=== PATIENT | male | born 1975 | race African-American/Black ===

== ENCOUNTER 2016-06-22 11:32 | Inpatient (IN) | payer OTHER ==
[2016-06-22 13:11] VITALS: BMI 29.0
--- NOTE | 2016-06-22 13:48 | HP ---
COWS - Scale Resting Pulse: 0= [place] 80 or Below Sweatin= Chills/Flushing Restless Observation: 1= Difficult to Sit Still Pupil Size: 0= Normal to Room Light Bone or Joint Aches: 2= Severe Diffuse Aches Runny Nose/ Eye Tearin= Runny Nose/Eyes GI Upset > 30mins: 0= None Tremor Observation: 2= Slight Tremor Visible Yawning Observation: 2= >3x During Session Anxiety or Irritability: 2=Irritable/Anxious Goose Flesh Skin: 3=Piloerection COWS Score: 15 CIWA Score - CIWA Score Nausea/Vomitin-No Nausea/No Vomiting Muscle Tremors: 4-Moderate,w/Arms Extend Anxiety: 4-Mod. Anxious/Guarded Agitation: 4-Moderately Restless Paroxysmal Sweats: 3 Orientation: 0-Oriented Tacttile Disturbances: 0-None Auditory Disturbances: 0-None Visual Disturbances: 0-None Headache: 1-Very Mild CIWA-Ar Total Score: 16 Admission ROS BHS - HPI Chief Complaint: I need help. Allergies/Adverse Reactions: Allergies Allergy/AdvReac Type Severity Reaction Status Date / Time Fish Containing Products Allergy Severe Swelling Verified 06/22/16 13:28 NKDA Allergy Uncoded 06/22/16 13:28 History of Present Illness: pt is a 40yr old male Exam Limitations: No Limitations - Ebola screening Have you traveled outside of the country in the last 21 days: No Have you had contact with anyone from an Ebola affected area: No Have you been sick,other than usual withdrawal symptoms: No Do you have a fever: No - Review of Systems Constitutional: Chills, Diaphoresis, Loss of Appetite, Changes in sleep, Unintentional Wgt. Loss EENT: reports: Nose Congestion Respiratory: reports: No Symptoms reported Cardiac: reports: No Symptoms Reported GI: reports: Poor Appetite, Poor Fluid Intake : reports: No Symptoms Reported Musculoskeletal: reports: No Symptoms Reported Integumentary: reports: Flushing, Sweating, Other (lesion to right hand) Neuro: reports: Tingling, Tremors Endocrine: reports: Excessive Sweating, Flushing, Intolerance to Cold, Intolerance to Heat Hematology: reports: No Symptoms Reported Psychiatric: reports: Judgement Intact, Mood/Affect Appropiate, Orientated x3, Agitated, Anxious Other Systems: Reviewed and Negative Patient History - Patient Medical History Hx Anemia: No Hx Asthma: No Hx Chronic Obstructive Pulmonary Disease (COPD): No Hx Cardiac Disorders: No Hx Hypertension: No Hx Hypercholesterolemia: No HX Cerebrovascular Accident: No Hx Seizures: No Hx Diabetes: No Hx Gastrointestinal Disorders: No Hx Liver Disease: No Hx Genitourinary Disorders: No Hx Sexually Transmitted Disorders: No Hx Renal Disease (ESRD): No Hx Thyroid Disease: No Hx Human Immunodeficiency Virus (HIV): No (NEGATIVE HX) Hx Hepatitis C: Yes (RECIEVED [place], V.LOAD ZERO PER PT) Hx Depression: No Hx Suicide Attempt: No Hx Bipolar Disorder: No Hx Schizophrenia: No - Patient Surgical History Past Surgical History: No Hx Neurologic Surgery: No Hx Cataract Extraction: No Hx Cardiac Surgery: No Hx Lung Surgery: No Hx Breast Surgery: No Hx Breast Biopsy: No Hx Abdominal Surgery: No Hx Appendectomy: No Hx Cholecystectomy: No Hx Genitourinary Surgery: No Hx Section: No Hx Orthopedic Surgery: No Anesthesia Reaction: No - PPD History Previous Implant?: Yes Documented Results: Negative w/o proof Implanted On Prior [facility] Admission?: Yes PPD to be Administered?: No - Reproductive History Patient is a Female of Child Bearing Age (11 -55 yrs old): No - Smoking Cessation Smoking history: Current every day smoker Have you smoked in the past 12 months: Yes Aproximately how many cigarettes per day: 7 Hx Chewing Tobacco Use: No Initiated information on smoking cessation: Yes 'Breaking Loose' booklet given: 06/22/16 - Substance & Tx. History Hx Alcohol Use: Yes Hx Substance Use: Yes Substance Use Type: Alcohol, Heroin Hx Substance Use Treatment: Yes - Substances Abused Heroin Route: Injection Frequency: Daily Amount used: 6-7 bags Age of first use: 28 Date of Last Use: 06/22/16 Alcohol-vodka Route: Oral Frequency: Daily Amount used: 1 pt. Age of first use: 17 Date of Last Use: 06/20/16 Family Disease History - Family Disease History Family Disease History: Diabetes: Grandparent, Other: Mother (HTN) Admission Physical Exam BHS - Vital Signs Vital Signs: Vital Signs - 24 hr 06/22/16 13:10 Temperature 96 F L Pulse Rate 80 Respiratory 20 Rate Blood Pressure 124/70 - Physical General Appearance: Yes: Appropriately Dressed, Moderate Distress, Tremorous, Irritable, Sweating, Anxious HEENTM: Yes: Normal Voice, Nasal Congestion, Rhinorrhea Respiratory: Yes: Lungs Clear, Normal Breath Sounds, No Respiratory Distress Neck: Yes: No masses,lesions,Nodules Breast: Yes: Within Normal Limits Cardiology: Yes: Regular Rhythm, Regular Rate, S1, S2 Abdominal: Yes: Normal Bowel Sounds, Non Tender, Soft Genitourinary: Yes: Within Normal Limits Back: Yes: Normal Inspection Musculoskeletal: Yes: full range of Motion Extremities: Yes: Normal Capillary Refill, Normal Inspection, Non-Tender, Tremors Neurological: Yes: Fully Oriented, Alert, Normal Response Integumentary: Yes: Normal Color, Other (abrasion to right hand) Lymphatic: Yes: Within Normal Limits - Diagnostic (1) Alcohol dependence with uncomplicated withdrawal Current Visit: Yes Status: Chronic (2) Nicotine dependence Current Visit: Yes Status: Chronic Qualifiers: Nicotine product type: cigarettes Substance use status: uncomplicated Qualified Code(s): F17.210 - Nicotine dependence, cigarettes, uncomplicated (3) Opioid dependence with withdrawal Current Visit: Yes Status: Chronic (4) Cannabis dependence Current Visit: Yes Status: Chronic (5) Cocaine dependence Current Visit: Yes Status: Chronic Qualifiers: Substance use status: uncomplicated Qualified Code(s): F14.20 - Cocaine dependence, uncomplicated (6) Abrasion hand Current Visit: Yes Status: Acute Qualifiers: Encounter type: initial encounter Laterality: right Qualified Code(s): S60.511A - Abrasion of right hand, initial encounter Cleared for Admission [facility] - Detox or Rehab [facility] Level of Care: Medically Managed Detox Regimen/Protocol: Methadone/Librium [facility] Breath Alcohol Content Breath Alcohol Content: 0 Urine Drug Screen - Results Drug Screen Negative: No Urine Drug Screen Results: THC-Marijuana, MARIANNE-Cocaine, OPI-Opiates, BZO- Benzodiazepines, MTD-Methadone, OXY-Oxycodone
[2016-06-22] MEDS ORDERED: MENTHOL/PHENOL 1 EACH UD MM PRN (14:01)
[2016-06-22] MEDS ORDERED: METHADONE HCL 10 MG TABLET (FOR DETOX USE ONLY) PO ONE ×2 (14:01→23:00)
[2016-06-22] MEDS ORDERED: MAGNESIUM CITRATE 300 ML BOTTLE PO PRN (14:01)
[2016-06-22] MEDS ORDERED: chlordiazePOXIDE HCL 25 MG CAPSULE PO PRN (14:01)
[2016-06-22] MEDS ORDERED: hydrOXYzine PAMOATE 50 MG CAPSULE (FP) PO PRN (14:01)
[2016-06-22] MEDS ORDERED: NICOTINE POLACRILEX 4 MG GUM BUC PRN (14:01)
[2016-06-22] MEDS ORDERED: ACETAMINOPHEN 325 MG TABLET (FP) PO PRN (14:01)
[2016-06-22] MEDS ORDERED: MAG HYDROX/AL HYDROX/SIMETH 30 ML UNIT-DOSE CUP PO PRN (14:01)
[2016-06-22] MEDS ORDERED: guaiFENesin/D-METHORPHAN HB 10 ML UNIT-DOSE CUPS PO PRN (14:01)
[2016-06-22] MEDS ORDERED: IBUPROFEN 400 MG TABLET (FP) PO PRN (14:01)
[2016-06-22] MEDS ORDERED: MAGNESIUM HYDROX 2400MG/30ML ORAL SUSPENSION 30 ML CUP PO PRN (14:01)
[2016-06-22] MEDS ORDERED: LOPERAMIDE HCL 2 MG CAPSULE PO PRN (14:01)
[2016-06-22] MEDS ORDERED: P-EPHED 60MG/TRIPROLIDI 2.5MG TABLET PO PRN (14:01)
[2016-06-22] MEDS ORDERED: chlordiazePOXIDE HCL 25 MG CAPSULE PO ONE (15:04)
[2016-06-22] MEDS: chlordiazePOXIDE HCL 25 MG CAPSULE PO SCH ×2 (17:31→22:59)
[2016-06-22 18:57] LABS: URINE APPEARANCE CLEAR; URINE BILIRUBIN NEGATIVE (NEGATIVE); URINE BLOOD NEGATIVE (NEGATIVE); URINE COLOR DKYELLOW; URINE GLUCOSE (UA) NEGATIVE (NEGATIVE); URINE KETONE TRACE (NEGATIVE); URINE LEUK ESTERASE NEGATIVE (NEGATIVE); URINE NITRITE NEGATIVE (NEGATIVE); URINE UROBILINOGEN NEGATIVE E.U./dl (0.2-1.0)
[2016-06-22 19:20] LABS: URINE PROTEIN 1+ (NEGATIVE)
[2016-06-22 19:23] LABS: URINE HYALINE CAST 2 /lpf; URINE MUCUS MANY; URINE RBC 2 /hpf (0-3); URINE WBC 3 /hpf (3-5)
[2016-06-22] MEDS: THIAMINE HCL 100 MG TABLET (FP) PO SCH (22:58)
[2016-06-22] MEDS: diphenhydrAMINE HCL 50 MG CAPSULE PO PRN (22:59)
[2016-06-23] MEDS: chlordiazePOXIDE HCL 25 MG CAPSULE PO SCH ×4 (06:40→23:00)
--- NOTE | 2016-06-23 09:54 | PN ---
[facility] CIWA - CIWA Score Nausea/Vomitin Muscle Tremors: 4-Moderate,w/Arms Extend Anxiety: 4-Mod. Anxious/Guarded Agitation: 4-Moderately Restless Paroxysmal Sweats: 3 Orientation: 0-Oriented Tacttile Disturbances: 0-None Auditory Disturbances: 0-None Visual Disturbances: 0-None Headache: 0-None Present CIWA-Ar Total Score: 18 BHS COWS - Scale Resting Pulse: 0= [place] 80 or Below Sweatin=Flushed/Facial Moisture Restless Observation: 1= Difficult to Sit Still Pupil Size: 0= Normal to Room Light Bone or Joint Aches: 2= Severe Diffuse Aches Runny Nose/ Eye Tearin= Runny Nose/Eyes GI Upset > 30mins: 2= Nausea/Diarrhea Tremor Observation of Outstretched Hands: 2= Slight Tremor Visible Yawning Observation: 1= 1-2x During Session Anxiety or Irritability: 2=Irritable/Anxious Goose Flesh Skin: 3=Piloerection COWS Score: 17 S Progress Note (SOAP) Subjective: Anxiety,tremors,sweating,interrupted sleep,restless,chills,piloerection. Objective: 06/23/16 09:53 Vital Signs - 8 hr 06/23/16 06/23/16 06/23/16 04:00 06:44 09:29 Temperature 97.2 F L 96.8 F L Pulse Rate 56 L 46 L Respiratory 18 18 18 Rate Blood Pressure 95/66 97/64 Laboratory Tests 06/22/16 13:00 Urine Color Dkyellow Urine Appearance Clear Urine pH 5.0 Ur Specific [place] 1.035 Urine Protein 1+ H Urine Glucose (UA) Negative Urine Ketones Trace H Urine Blood Negative Urine Nitrite Negative Urine Bilirubin Negative Urine Urobilinogen Negative Ur Leukocyte Esterase Negative Urine RBC 2 Urine WBC 3 Hyaline Casts 2 Urine Mucus Many labs noted Assessment: 06/23/16 09:53 Withdrawal sx. Plan: Continue detox
[2016-06-23] MEDS ORDERED: METHADONE HCL 10 MG TABLET (FOR DETOX USE ONLY) PO SCH (10:00)
[2016-06-23 10:08] LABS: MCH 26.6 pg (25.7-33.7); MCHC 32.4 g/dl (32.0-35.9); MEAN CELL VOLUME 82.1 fl (80-96); MEAN PLT VOLUME 9.4 fl (7.5-11.1); PLATELET COUNT 199 K/MM3 (134-434); RDW 13.8 % (11.9-15.9); WHITE BLOOD COUNT 6.2 K/mm3 (4.0-10.0)
[2016-06-23] MEDS: PRENATAL VITAMINS W/ FOLIC ACID TABLET (FP) PO SCH (10:46)
[2016-06-23 10:52] LABS: HIV 1 & 2 AB NEGATIVE; HIV 1 AGp24 NEGATIVE
[2016-06-23 10:55] LABS: ALBUMIN 4.2 g/dl (3.4-5.0); ALK PHOS 86 U/L (45-117); ANION GAP 8 (8-16); BILIRUBIN,TOTAL 0.6 mg/dL (0.2-1.0); CO2 28 mmol/L (21-32); GLUCOSE,RANDOM 70 mg/dL (74-106); SGOT/AST 43 U/L (15-37); SGPT/ALT 101 U/L (12-78); TOT PROT 7.9 g/dl (6.4-8.2)
[2016-06-23] MEDS: NICOTINE 21 MG/24 HOURS TOPICAL PATCH TD SCH (11:23)
--- NOTE | 2016-06-23 12:16 | CONSULT ---
[facility] Psychiatric Consult - Data Date of interview: 06/23/16 Admission source: [facility] Identifying data: Readmission to [facility] for this 40 y/o male seeking detox treatment for alcohol,heroin,cocaine,benzodiazepine and marijuana dependence.Patient is single,a father of one,domiciled,unemployed and deprived of any source of income. Substance Abuse History: - Smoking Cessation. Smoking history: Current every day smoker. Have you smoked in the past 12 months: Yes. Aproximately how many cigarettes per day: 7. Hx Chewing Tobacco Use: No. Initiated information on smoking cessation: Yes. 'Breaking Loose' booklet given: 06/22/16. - Substance & Tx. History. Hx Alcohol Use: Yes. Hx Substance Use: Yes. Substance Use Type : Alcohol, Heroin. Hx Substance Use Treatment: Yes. - Substances Abused. Heroin. Route: Injection. Frequency: Daily. Amount used: 6-7 bags. Age of first use: 28. Date of Last Use: 06/22/16. Alcohol-vodka. Route: Oral. Frequency: Daily. Amount used: 1 pt. Age of first use: 17. Date of Last Use: 06/20/16. Confriemed by patient. Medical History: Hepatitis C. Psychiatric History: Patient denies. Physical/Sexual Abuse/Trauma History: Patient denies. Additional Comment: Urine Drug Screen Results: THC-Marijuana, MARIANNE-Cocaine, OPI- Opiates, BZO-Benzodiazepines, MTD-Methadone, OXY-Oxycodone.Noted. Mental Status Exam - Mental Status Exam Alert and Oriented to: Time, Place, Person Cognitive Function: Grossly Intact Patient Appearance: Unkempt, Disheveled Mood: Nervous, Withdrawn Affect: Mood Congruent Patient Behavior: Passive, Fatigued, Uncooperative Speech Pattern: Clear Voice Loudness: Normal Thought Process: Goal Oriented Thought Disorder: Not Present Hallucinations: Denies Suicidal Ideation: Denies Homicidal Ideation: Denies Insight/Judgement: Poor Sleep: Well Appetite: Good Muscle strength/Tone: Normal Gait/Station: Normal Psychiatric Findings - Problem List ([place] 1, 2,3) (1) Alcohol dependence with uncomplicated withdrawal Current Visit: Yes Status: Acute (2) Cannabis dependence Current Visit: Yes Status: Acute (3) Opioid dependence with withdrawal Current Visit: Yes Status: Acute (4) Cocaine dependence Current Visit: Yes Status: Acute Qualifiers: Substance use status: uncomplicated Qualified Code(s): F14.20 - Cocaine dependence, uncomplicated (5) Nicotine dependence Current Visit: Yes Status: Acute Qualifiers: Nicotine product type: cigarettes Substance use status: uncomplicated Qualified Code(s): F17.210 - Nicotine dependence, cigarettes, uncomplicated - Initial Treatment Plan Initial Treatment Plan: Psychoeducation.Detoxification.Observation.
--- NOTE | 2016-06-23 12:35 | EKG ---
Test Reason : Blood Pressure : / mmHG Vent. Rate : 065 BPM Atrial Rate : 065 BPM P-R Int : 188 ms QRS Dur : 090 ms QT Int : 414 ms P-R-T Axes : 058 083 043 degrees QTc Int : 430 ms NORMAL SINUS RHYTHM WITH SINUS ARRHYTHMIA NORMAL ECG NO PREVIOUS ECGS AVAILABLE Confirmed by JOON CAPUTO, ILEANA ([id number]) on 06/23/2016 12:34:34 PM Referred By: Confirmed By:ILEANA DUPREE MD
[2016-06-23] MEDS: THIAMINE HCL 100 MG TABLET (FP) PO SCH (23:00)
[2016-06-23] MEDS: diphenhydrAMINE HCL 50 MG CAPSULE PO PRN (23:00)
[2016-06-24] MEDS: chlordiazePOXIDE HCL 25 MG CAPSULE PO SCH ×2 (06:11→11:02)
[2016-06-24] MEDS ORDERED: METHADONE HCL 5 MG TABLET (FOR DETOX USE ONLY) PO SCH (10:00)
[2016-06-24] MEDS: PRENATAL VITAMINS W/ FOLIC ACID TABLET (FP) PO SCH (10:42)
[2016-06-24] MEDS: NICOTINE 21 MG/24 HOURS TOPICAL PATCH TD SCH (10:42)
[2016-06-24 14:01] VITALS: BP 99/65; PULSE 58; TEMP 97.1
--- NOTE | 2016-06-24 14:42 | PN ---
[facility] CIWA - CIWA Score Nausea/Vomitin-Mild Nausea/No Vomiting Muscle Tremors: 4-Moderate,w/Arms Extend Anxiety: 4-Mod. Anxious/Guarded Agitation: 2 Paroxysmal Sweats: 3 Orientation: 1-Uncertain about Date Tacttile Disturbances: 2-Mild Itch/Numbness/Burn Auditory Disturbances: 0-None Visual Disturbances: 1-Very Mild Sensitivity Headache: 0-None Present CIWA-Ar Total Score: 18 BHS COWS - Scale Resting Pulse: 1= [place] 81-100 Sweatin= Chills/Flushing Restless Observation: 1= Difficult to Sit Still Pupil Size: 0= Normal to Room Light Bone or Joint Aches: 1= Mild Discomfort Runny Nose/ Eye Tearin= Nasal Congestion GI Upset > 30mins: 1= Stomach Cramp Tremor Observation of Outstretched Hands: 2= Slight Tremor Visible Yawning Observation: 1= 1-2x During Session Anxiety or Irritability: 2=Irritable/Anxious Goose Flesh Skin: 3=Piloerection COWS Score: 14 [facility] Progress Note (SOAP) Subjective: Sweating, Cold Sensations, Anxiety, Tremors. Objective: PT. A & O X 2 (DISORIENTED ABOUT DATE / DAY). 06/24/16 14:40 Vital Signs Temperature 97.1 F L 06/24/16 14:00 Pulse Rate 58 L 06/24/16 14:00 Respiratory Rate 18 06/24/16 14:00 Blood Pressure 99/65 06/24/16 14:00 O2 Sat by Pulse Oximetry (%) Laboratory Last Values WBC 6.2 K/mm3 (4.0-10.0) D 06/23/16 06:00 RBC 5.13 M/mm3 (4.00-5.60) 06/23/16 06:00 Hgb 13.7 GM/dL (11.7-16.9) 06/23/16 06:00 Hct 42.1 % (35.4-49) 06/23/16 06:00 MCV 82.1 fl (80-96) 06/23/16 06:00 MCHC 32.4 g/dl (32.0-35.9) 06/23/16 06:00 RDW 13.8 % (11.9-15.9) 06/23/16 06:00 Plt Count 199 K/MM3 (134-434) 06/23/16 06:00 MPV 9.4 fl (7.5-11.1) 06/23/16 06:00 Sodium 137 mmol/L (136-145) 06/23/16 06:00 Potassium 4.3 mmol/L (3.5-5.1) 06/23/16 06:00 Chloride 101 mmol/L (98-107) 06/23/16 06:00 Carbon Dioxide 28 mmol/L (21-32) 06/23/16 06:00 Anion Gap 8 (8-16) 06/23/16 06:00 BUN 19 mg/dL (7-18) H D 06/23/16 06:00 Creatinine 1.0 mg/dL (0.7-1.3) 06/23/16 06:00 Creat Clearance w eGFR > 60 (>60) 06/23/16 06:00 Random Glucose 70 mg/dL (74-106) L D 06/23/16 06:00 Calcium 9.0 mg/dL (8.5-10.1) 06/23/16 06:00 Total Bilirubin 0.6 mg/dL (0.2-1.0) D 06/23/16 06:00 AST 43 U/L (15-37) H D 06/23/16 06:00 ALT 101 U/L (12-78) H D 06/23/16 06:00 Alkaline Phosphatase 86 U/L (45-117) 06/23/16 06:00 Total Protein 7.9 g/dl (6.4-8.2) 06/23/16 06:00 Albumin 4.2 g/dl (3.4-5.0) D 06/23/16 06:00 Urine Color Dkyellow 06/22/16 13:00 Urine Appearance Clear 06/22/16 13:00 Urine pH 5.0 (5.0-8.0) 06/22/16 13:00 Ur Specific [place] 1.035 (1.001-1.035) 06/22/16 13:00 Urine Protein 1+ (NEGATIVE) H 06/22/16 13:00 Urine Glucose (UA) Negative (NEGATIVE) 06/22/16 13:00 Urine Ketones Trace (NEGATIVE) H 06/22/16 13:00 Urine Blood Negative (NEGATIVE) 06/22/16 13:00 Urine Nitrite Negative (NEGATIVE) 06/22/16 13:00 Urine Bilirubin Negative (NEGATIVE) 06/22/16 13:00 Urine Urobilinogen Negative E.U./dl (0.2-1.0) 06/22/16 13:00 Ur Leukocyte Esterase Negative (NEGATIVE) 06/22/16 13:00 Urine RBC 2 /hpf (0-3) 06/22/16 13:00 Urine WBC 3 /hpf (3-5) 06/22/16 13:00 Hyaline Casts 2 /lpf 06/22/16 13:00 Urine Mucus Many 06/22/16 13:00 RPR Titer Nonreactive (NONREACTIVE) 06/23/16 06:00 HIV 1&2 Antibody Screen Negative 06/22/16 08:00 HIV P24 Antigen Negative 06/22/16 08:00 LABS NOTED. Assessment: 06/24/16 14:41 WITHDRAWAL SYMPTOMS. Plan: CONTINUE DETOX. ADVISED PATIENT TO FOLLOW-UP WITH CERAMICS TECHNICIAN / REHAB MEDICAL PROVIDER AFTER DISCHARGE FROM DETOX FOR GENERAL MEDICAL ASSESSMENT AND FOR ANY ABNORMAL ADMISSION LAB VALUES.
[2016-06-24] MEDS ORDERED: chlordiazePOXIDE 5 MG CAPSULE PO SCH (17:00)
--- NOTE | 2016-06-24 18:57 | DS ---
[facility] Detox Discharge Summary Admission Date: 06/22/16 Discharge Date: 06/24/16 - History Present History: Alcohol Dependence, Cannabis Dependence, Cocaine Dependence, Opioid Dependence Additional Comments: patient insists to leave the unit, refuses to wait face to face with provider consider follow up as per counselor arranged. Pertinent Past History: nicotine dependence - Physical Exam Results Vital Signs: Vital Signs Temperature 97.1 F L 06/24/16 14:00 Pulse Rate 58 L 06/24/16 14:00 Respiratory Rate 18 06/24/16 14:00 Blood Pressure 99/65 06/24/16 14:00 O2 Sat by Pulse Oximetry (%) Pertinent Admission Physical Exam Findings: withdrawal sx Laboratory Last Values WBC 6.2 K/mm3 (4.0-10.0) D 06/23/16 06:00 RBC 5.13 M/mm3 (4.00-5.60) 06/23/16 06:00 Hgb 13.7 GM/dL (11.7-16.9) 06/23/16 06:00 Hct 42.1 % (35.4-49) 06/23/16 06:00 MCV 82.1 fl (80-96) 06/23/16 06:00 MCHC 32.4 g/dl (32.0-35.9) 06/23/16 06:00 RDW 13.8 % (11.9-15.9) 06/23/16 06:00 Plt Count 199 K/MM3 (134-434) 06/23/16 06:00 MPV 9.4 fl (7.5-11.1) 06/23/16 06:00 Sodium 137 mmol/L (136-145) 06/23/16 06:00 Potassium 4.3 mmol/L (3.5-5.1) 06/23/16 06:00 Chloride 101 mmol/L (98-107) 06/23/16 06:00 Carbon Dioxide 28 mmol/L (21-32) 06/23/16 06:00 Anion Gap 8 (8-16) 06/23/16 06:00 BUN 19 mg/dL (7-18) H D 06/23/16 06:00 Creatinine 1.0 mg/dL (0.7-1.3) 06/23/16 06:00 Creat Clearance w eGFR > 60 (>60) 06/23/16 06:00 Random Glucose 70 mg/dL (74-106) L D 06/23/16 06:00 Calcium 9.0 mg/dL (8.5-10.1) 06/23/16 06:00 Total Bilirubin 0.6 mg/dL (0.2-1.0) D 06/23/16 06:00 AST 43 U/L (15-37) H D 06/23/16 06:00 ALT 101 U/L (12-78) H D 06/23/16 06:00 Alkaline Phosphatase 86 U/L (45-117) 06/23/16 06:00 Total Protein 7.9 g/dl (6.4-8.2) 06/23/16 06:00 Albumin 4.2 g/dl (3.4-5.0) D 06/23/16 06:00 Urine Color Dkyellow 06/22/16 13:00 Urine Appearance Clear 06/22/16 13:00 Urine pH 5.0 (5.0-8.0) 06/22/16 13:00 Ur Specific [place] 1.035 (1.001-1.035) 06/22/16 13:00 Urine Protein 1+ (NEGATIVE) H 06/22/16 13:00 Urine Glucose (UA) Negative (NEGATIVE) 06/22/16 13:00 Urine Ketones Trace (NEGATIVE) H 06/22/16 13:00 Urine Blood Negative (NEGATIVE) 06/22/16 13:00 Urine Nitrite Negative (NEGATIVE) 06/22/16 13:00 Urine Bilirubin Negative (NEGATIVE) 06/22/16 13:00 Urine Urobilinogen Negative E.U./dl (0.2-1.0) 06/22/16 13:00 Ur Leukocyte Esterase Negative (NEGATIVE) 06/22/16 13:00 Urine RBC 2 /hpf (0-3) 06/22/16 13:00 Urine WBC 3 /hpf (3-5) 06/22/16 13:00 Hyaline Casts 2 /lpf 06/22/16 13:00 Urine Mucus Many 06/22/16 13:00 RPR Titer Nonreactive (NONREACTIVE) 06/23/16 06:00 HIV 1&2 Antibody Screen Negative 06/22/16 08:00 HIV P24 Antigen Negative 06/22/16 08:00 lab noted - Treatment Hospital Course: Detox Protocol Followed, Responded well - Medication Discharge Medications: Ambulatory Orders NK [No Known Home Medication] 09/15/14 - Diagnosis (1) Alcohol dependence with uncomplicated withdrawal Status: Acute (2) Cannabis dependence Status: Chronic (3) Cocaine dependence Status: Chronic Qualifiers: Substance use status: uncomplicated Qualified Code(s): F14.20 - Cocaine dependence, uncomplicated (4) Nicotine dependence Status: Acute Qualifiers: Nicotine product type: cigarettes Substance use status: in withdrawal Qualified Code(s): F17.213 - Nicotine dependence, cigarettes, with withdrawal (5) Opioid dependence with withdrawal Status: Acute - AMA Did Patient Leave Against Medical Advice: Yes
[2016-06-25] MEDS ORDERED: chlordiazePOXIDE HCL 10 MG CAPSULE PO SCH (17:00)
[2016-06-26] MEDS ORDERED: METHADONE HCL 10 MG TABLET (FOR DETOX USE ONLY) PO SCH (10:00)
[2016-06-27] MEDS ORDERED: METHADONE HCL 5 MG TABLET (FOR DETOX USE ONLY) PO SCH (06:00)
== END 2016-06-24 17:55 | disposition left against medical advice (07) | DRG 770 ==
LOC: YASAS 11:32 → Y3N 14:30
PROVIDERS: ADMIT Internal Medicine; ATTEND Internal Medicine
PROC: HZ2ZZZZ Detoxification Services for Substance Abuse Treatment (ICD-10-PCS; principal; 2016-06-24)
DX: F11.23 Opioid dependence with withdrawal (principal); F14.20 Cocaine dependence, uncomplicated; F12.20 Cannabis dependence, uncomplicated; F17.213 Nicotine dependence, cigarettes, with withdrawal; S60.511A Abrasion of right hand, initial encounter; X58.XXXA Exposure to other specified factors, initial encounter; Y93.89 Activity, other specified
CPT/HCPCS: 36415; 80053; 81003; 81015; 85027; 86593; 87389; 93005; 93010

== ENCOUNTER 2019-10-03 13:57 | Inpatient (IN) | payer OTHER ==
--- NOTE | 2019-10-03 14:06 | BHS.RME ---
Substance Use & Tx History - Substance Use History Alcohol Substance amount: 2 pints bacardi and beers Frequency of use: Daily Substance route: Oral Date of Last Use: 10/03/19 Heroin Substance amount: 6 bags Frequency of use: Daily Substance route: Inhalation (ex: sniffing or snorting) Date of Last Use: 10/02/19 Physical/Psych/Mental Status - Behavior General Behavior: Increased activity (restlessness, agitation) Eye Contact: Normal - Cooperativeness Cooperativeness: Cooperative - Thinking Thought Processes: Tight, Logical, Goal Directed - Physical Health Problems Is patient presently having any pain?: No Does patient presently have any injuries (include location): No Does patient currently have a fever: No Is patient : No CIWA Nausea/Vomitin Muscle Tremors: 3 Anxiety: 4-Mod. Anxious/Guarded Agitation: 2 Paroxysmal Sweats: No Perspiration Orientation: 0-Oriented Tacttile Disturbances: 0-None Auditory Disturbances: 0-None Visual Disturbances: 0-None Headache: 1-Very Mild CIWA-Ar Total Score: 13
[2019-10-03 15:00] VITALS: BMI 27.3
--- NOTE | 2019-10-03 15:15 | HP ---
CIWA Score Nausea/Vomitin Muscle Tremors: 3 Anxiety: 4-Mod. Anxious/Guarded Agitation: 2 Paroxysmal Sweats: No Perspiration Orientation: 0-Oriented Tacttile Disturbances: 0-None Auditory Disturbances: 0-None Visual Disturbances: 0-None Headache: 1-Very Mild CIWA-Ar Total Score: 13 - Admission Criteria OASAS Guidelines: Admission for Medically Managed Detox: Requires at least one of the followin. CIWA greater than 12 2. Seizures within the past 24 hours 3. Delirium tremens within the past 24 hours 4. Hallucinations within the past 24 hours 5. Acute intervention needed for co occurring medical disorder 6. Acute intervention needed for co occurring psychiatric disorder 7. Severe withdrawal that cannot be handled at a lower level of care (continued vomiting, continued diarrhea, abnormal vital signs) requiring intravenous medication and/or fluids 8. Admitting History and Physical - Admission Chief Complaint: I do not want to do drugs anymore History of Present Illness: Patient is a 45 y/o M with a significant past medical history of Hepatitis C (treated) who presents to [facility] for Alcohol detox. Patient is currently on ethadone therapy for opiate abuse. PMH Hepatitis C Treated Social Hx: Denies Tobacco or Marijuana. Drinks Baccardi 2 pints daily. Injects Heroine (last use last night 11 pm) Surg Hx- Liver biopsy FH- Denies Substance Use & Tx History - Substance Use History Alcohol Substance amount: 2 pints bacardi and beers Frequency of use: Daily Substance route: Oral Date of Last Use: 10/03/19 Heroin Substance amount: 6 bags Frequency of use: Daily Substance route: Inhalation (ex: sniffing or snorting) Date of Last Use: 10/02/19 History Source: Patient Limitations to Obtaining History: No Limitations - Past Medical History Hepatobiliary: Yes: Hepatitis C (Treated.) Psych: Yes: Anxiety - Past Surgical History Additional Past Surgical History: Liver Biopsy (previous h/o Hep C) - Smoking History Smoking history: Never smoked Have you smoked in the past 12 months: No Aproximately how many cigarettes per day: 0 - Alcohol/Substance Use Hx Alcohol Use: Yes Number of Drinks Daily: 40 (2 pints of Baccardi ) Admission ROS BHS - HPI Allergies/Adverse Reactions: Allergies Allergy/AdvReac Type Severity Reaction Status Date / Time Fish Containing Products Allergy Severe Swelling Verified 10/03/19 14:51 No Known Drug Allergies Allergy Verified 10/03/19 14:51 NKDA Allergy Uncoded 10/03/19 14:51 - Ebola screening Have you traveled outside of the country in the last 21 days: No Have you been sick,other than usual withdrawal symptoms: No Do you have a fever: No - Review of Systems Constitutional: No Symptoms Reported EENT: denies: No Symptoms Reported, See HPI, Cataracts, Blurred Vision, Double Vision, Eye Pain, Tearing, Recent change in vision, Ear Discharge, Ear Pain, Hearing Loss, Ocular Prothesis, Tinnitus, Nose Bleeding, Nose Congestion, Sinus Pressure, Dental Problems, Mouth Pain, Mouth Swelling, Difficulty Swallowing, Odynophagia, Throat Pain, Throat Swelling, Other Respiratory: denies: No Symptoms reported, See HPI, Cough, Orthopnea, Shortness of Breath, SOB with Exertion, SOB at Rest, Stridor, Wheezing, Productive cough, Hemoptysis, Other Cardiac: denies: No Symptoms Reported, See HPI, Chest Pain, Edema, Irregular Heart Rate, Lightheadedness, Palpitations, Syncope, Chest Tightness, Other GI: reports: Nausea, Abdominal cramping : denies: No Symptoms Reported, See HPI, Burning, Dysuria, Discharge, Frequency, Flank Pain, Hematuria, Incontinence, Pain, Urgency, Testicular Mass, Testicular Swelling, Lesions, Testicular Pain, Other Integumentary: denies: No Symptoms Reported, See HPI, Bruising, Change in Color, Change in Hair/Nails, Dryness, Erythema, Flushing, Lesions, Lumps, Pallor, Pruritus, Rash, Sweating, Other Neuro: denies: No Symptoms reported, See HPI, Headache, Numbness, Paresthesia, Pre-Existing Deficit, Seizure, Tingling, Tremors, Weakness, Unsteady Gait, Ataxia, Dizziness, Other Endocrine: denies: No Symptoms Reported, See HPI, Excessive Sweating, Flushing, Intolerance to Cold, Intolerance to Heat, Increased Hunger, Increased Thirst, Increased Urine, Unexplained Weight Gain, Unexplained Weight Loss, Change in Weight, Other Hematology: denies: No Symptoms Reported, See HPI, Anemia, Blood Clots, Easy Bleeding, Easy Bruising, Bleeding Diathesis, Lymph Node Abnormalities, Swollen Glands, Other Psychiatric: reports: Orientated x3 Patient History - Patient Medical History Hx Anemia: No Hx Asthma: No Hx Chronic Obstructive Pulmonary Disease (COPD): No Hx Cardiac Disorders: No Hx Hypertension: No Hx Hypercholesterolemia: No HX Cerebrovascular Accident: No Hx Seizures: No Hx Diabetes: No Hx Gastrointestinal Disorders: No Hx Liver Disease: No Hx Genitourinary Disorders: No Hx Sexually Transmitted Disorders: No Hx Renal Disease (ESRD): No Hx Thyroid Disease: No Hx Human Immunodeficiency Virus (HIV): No (NEGATIVE HX) Hx Hepatitis C: Yes (RECIEVED TX, V.LOAD ZERO PER PT) Hx Depression: No Hx Suicide Attempt: No Hx Bipolar Disorder: No Hx Schizophrenia: No - Patient Surgical History Past Surgical History: No Hx Neurologic Surgery: No Hx Cataract Extraction: No Hx Cardiac Surgery: No Hx Lung Surgery: No Hx Breast Surgery: No Hx Breast Biopsy: No Hx Abdominal Surgery: No Hx Appendectomy: No Hx Cholecystectomy: No Hx Genitourinary Surgery: No Hx Section: No Hx Orthopedic Surgery: No Anesthesia Reaction: No - PPD History Previous Implant?: Yes Date: 06/24/16 Results: 0 mm - Reproductive History Patient : (n/a) - Smoking Cessation Smoking history: Never smoked Have you smoked in the past 12 months: No Aproximately how many cigarettes per day: 0 Cigars Per Day: 0 Hx Chewing Tobacco Use: No Initiated information on smoking cessation: No - Substances abused Alcohol Substance route: Oral Frequency: Daily Amount used: 2 pint of barcardi Age of first use: 19 Date of last use: 10/03/19 Heroin Substance route: Injection Frequency: Daily Amount used: 6 bags Age of first use: 25 Date of last use: 10/03/19 Admission Physical Exam S - Vital Signs Vital Signs: Vital Signs - 24 hr 10/03/19 14:54 Temperature 97.0 F L Pulse Rate 71 Respiratory 20 Rate - Physical General Appearance: Yes: Within Normal Limits HEENTM: Yes: Within Normal Limits, EOMI, Hearing grossly Normal, Normal ENT Inspection, Normocephalic Respiratory: Yes: Within Normal Limits, Chest Non-Tender, Lungs Clear Neck: Yes: Other (Injection site right side of neck. No erythema or signs of infection.) Cardiology: Yes: Within Normal Limits, Regular Rhythm, Regular Rate, S1, S2. No: Diastolic Murmur, Systolic Murmur, Irregularly Irregular, Irregular Abdominal: Yes: Within Normal Limits, Normal Bowel Sounds, Non Tender, Flat, Soft Extremities: Yes: Within Normal Limits, Normal Inspection, Normal Range of Motion, Non-Tender Neurological: Yes: Within Normal Limits, breaker boss II-XII NML intact, Fully Oriented, Alert - Diagnostic (1) Alcohol dependence with uncomplicated withdrawal Current Visit: No Status: Acute (2) Opioid dependence on agonist therapy Current Visit: Yes Status: Acute Cleared for Admission S - Detox or Rehab [facility] Level of Care: Medically Managed Detox Regimen/Protocol: Librium Screened but not Admitted - Documentation of Visit Screened but not Admitted: No Urine Drug Screen - Test Device Lot number: [id number] Expiration date: 11/24/20 - Control Is test valid?: Yes - Results Drug screen NEGATIVE: No Urine drug screen results: MARIANNE-Cocaine, FEN-Fentanyl, MOP-Opiates, MTD- Methadone, BZO-Benzodiazepines Inpatient Rehab Admission - Rehab Decision to Admit Inpatient rehab admission?: No
[2019-10-03] MEDS ORDERED: IBUPROFEN 400 MG TABLET (FP) PO PRN (15:40)
[2019-10-03] MEDS ORDERED: ACETAMINOPHEN 325 MG TABLET (FP) PO PRN ×2 (15:40)
[2019-10-03] MEDS ORDERED: MAGNESIUM HYDROX 2400MG/30ML ORAL SUSPENSION 30 ML CUP PO PRN (15:40)
[2019-10-03] MEDS ORDERED: MAG HYDROX/AL HYDROX/SIMETH 30 ML UNIT-DOSE CUP PO PRN (15:40)
[2019-10-03] MEDS ORDERED: BISMUTH SUBSALICYLATE 524 MG/30 ML UD PO PRN (15:40)
[2019-10-03] MEDS ORDERED: NICOTINE POLACRILEX 2 MG GUM BUC PRN (15:40)
[2019-10-03] MEDS ORDERED: ONDANSETRON *ODT* 4 MG TABLET SL ONE (15:40)
[2019-10-03] MEDS ORDERED: MAGNESIUM CITRATE 300 ML BOTTLE PO PRN (15:40)
[2019-10-03] MEDS ORDERED: METHOCARBAMOL 500 MG TABLET PO PRN (15:40)
[2019-10-03] MEDS ORDERED: MENTHOL/PHENOL 1 EACH UD MM PRN (15:40)
[2019-10-03] MEDS ORDERED: chlordiazePOXIDE HCL 25 MG CAPSULE PO PRN (15:42)
[2019-10-03] MEDS: chlordiazePOXIDE HCL 25 MG CAPSULE PO SCH ×2 (17:41→22:23)
[2019-10-03] MEDS: hydrOXYzine PAMOATE 25 MG CAPSULE (FP) PO SCH ×2 (17:41→22:26)
[2019-10-03] MEDS: PRENATAL VITAMINS W/ FOLIC ACID TABLET (FP) PO SCH (17:54)
[2019-10-03] MEDS: NICOTINE 7 MG/24 HOURS TOPICAL PATCH TD SCH (17:54)
[2019-10-03] MEDS: THIAMINE HCL 100 MG TABLET (FP) PO SCH (22:23)
[2019-10-03] MEDS: MELATONIN 5 MG TABLETS PO SCH (23:24)
[2019-10-04] MEDS: chlordiazePOXIDE HCL 25 MG CAPSULE PO SCH ×4 (05:25→22:20)
[2019-10-04] MEDS: hydrOXYzine PAMOATE 25 MG CAPSULE (FP) PO SCH ×5 (05:26→22:20)
[2019-10-04] MEDS: METHADONE HCL 40 MG DISPERSABLE TABLET PO SCH (10:39)
[2019-10-04] MEDS: PRENATAL VITAMINS W/ FOLIC ACID TABLET (FP) PO SCH (10:39)
[2019-10-04] MEDS: NICOTINE 7 MG/24 HOURS TOPICAL PATCH TD SCH (10:39)
[2019-10-04 11:12] LABS: HEMATOCRIT 38.4 % (35.4-49); HEMOGLOBIN 12.5 GM/dL (11.7-16.9); MCH 27.9 pg (25.7-33.7); MCHC 32.6 g/dl (32.0-35.9); MEAN CELL VOLUME 85.3 fl (80-96); MEAN PLT VOLUME 9.3 fl (7.5-11.1); PLATELET COUNT 166 K/MM3 (134-434); RDW 13.2 % (11.9-15.9); WHITE BLOOD COUNT 4.3 K/mm3 (4.0-10.0)
--- NOTE | 2019-10-04 11:20 | PN ---
S CIWA - CIWA Score Nausea/Vomitin Muscle Tremors: 2 Anxiety: 2 Agitation: 2 Paroxysmal Sweats: No Perspiration Orientation: 0-Oriented Tacttile Disturbances: 1-Very Mild Itch/Numbness Auditory Disturbances: 0-None Visual Disturbances: 1-Very Mild Sensitivity Headache: 2-Mild CIWA-Ar Total Score: 12 BHS Progress Note (SOAP) Subjective: alert,irritable,anxious,interrupted sleep,tremor,aching pain in the body and back Objective: 10/04/19 11:19 Vital Signs Temperature 97.3 F L 10/04/19 09:08 Pulse Rate 65 10/04/19 09:08 Respiratory Rate 19 10/04/19 09:08 Blood Pressure 100/58 L 10/04/19 09:08 O2 Sat by Pulse Oximetry (%) 98 10/04/19 05:20 10/04/19 11:20 labs pending Assessment: 10/04/19 11:20 withdrawal symptom Plan: continue detox librium regimen,methadone maintenance 80 mgs/day
[2019-10-04 11:38] LABS: BILIRUBIN,TOTAL 0.3 mg/dL (0.2-1); BLOOD UREA NITROGEN 14.2 mg/dL (7-18); CALCIUM 8.6 mg/dL (8.5-10.1); POTASSIUM 3.9 mmol/L (3.5-5.1)
--- NOTE | 2019-10-04 13:23 | EKG ---
Test Reason : Blood Pressure : / mmHG Vent. Rate : 057 BPM Atrial Rate : 057 BPM P-R Int : 170 ms QRS Dur : 090 ms QT Int : 462 ms P-R-T Axes : 066 084 055 degrees QTc Int : 449 ms SINUS BRADYCARDIA EARLY REPOLARIZATION NONSPECIFIC T WAVE ABNORMALITY INCOMPLETE RBBB Confirmed by ALESSIO MACIAS MD ([id number]) on 10/04/2019 1:23:04 PM Referred By: Confirmed By:ALESSIO MACIAS MD
[2019-10-04] MEDS: THIAMINE HCL 100 MG TABLET (FP) PO SCH (22:20)
[2019-10-04] MEDS: MELATONIN 5 MG TABLETS PO SCH (22:20)
[2019-10-05] MEDS: METHADONE HCL 40 MG DISPERSABLE TABLET PO SCH (06:26)
[2019-10-05] MEDS: hydrOXYzine PAMOATE 25 MG CAPSULE (FP) PO SCH ×5 (06:27→23:53)
[2019-10-05] MEDS: chlordiazePOXIDE HCL 25 MG CAPSULE PO SCH ×4 (06:27→23:53)
[2019-10-05] MEDS: PRENATAL VITAMINS W/ FOLIC ACID TABLET (FP) PO SCH (10:13)
[2019-10-05] MEDS: NICOTINE 7 MG/24 HOURS TOPICAL PATCH TD SCH (10:13)
--- NOTE | 2019-10-05 13:17 | PN ---
[facility] CIWA - CIWA Score Nausea/Vomitin-No Nausea/No Vomiting Muscle Tremors: 2 Anxiety: 3 Agitation: 2 Paroxysmal Sweats: 2 Orientation: 0-Oriented Tacttile Disturbances: 0-None Auditory Disturbances: 0-None Visual Disturbances: 1-Very Mild Sensitivity Headache: 0-None Present CIWA-Ar Total Score: 10 S Progress Note (SOAP) Subjective: Complaints of anxiety, tremors, sweats and light sensitivity. Objective: 10/05/19 13:15 Vital Signs 10/05/19 10/05/19 05:21 08:44 Temperature 97.8 F 97.5 F L Pulse Rate 62 51 L Respiratory 20 16 Rate Blood Pressure 101/67 118/75 O2 Sat by Pulse 98 Oximetry (%) Laboratory Last Values WBC 4.3 K/mm3 (4.0-10.0) 10/04/19 07:05 RBC 4.50 M/mm3 (4.00-5.60) 10/04/19 07:05 Hgb 12.5 GM/dL (11.7-16.9) 10/04/19 07:05 Hct 38.4 % (35.4-49) 10/04/19 07:05 MCV 85.3 fl (80-96) 10/04/19 07:05 MCH 27.9 pg (25.7-33.7) 10/04/19 07:05 MCHC 32.6 g/dl (32.0-35.9) 10/04/19 07:05 RDW 13.2 % (11.9-15.9) 10/04/19 07:05 Plt Count 166 K/MM3 (134-434) 10/04/19 07:05 MPV 9.3 fl (7.5-11.1) 10/04/19 07:05 Sodium 143 mmol/L (136-145) 10/04/19 07:05 Potassium 3.9 mmol/L (3.5-5.1) 10/04/19 07:05 Chloride 110 mmol/L (98-107) H 10/04/19 07:05 Carbon Dioxide 28 mmol/L (21-32) 10/04/19 07:05 Anion Gap 5 MMOL/L (8-16) L 10/04/19 07:05 BUN 14.2 mg/dL (7-18) 10/04/19 07:05 Creatinine 1.0 mg/dL (0.55-1.3) 10/04/19 07:05 Est GFR (CKD-EPI)AfAm 107.12 10/04/19 07:05 Est GFR (CKD-EPI)NonAf 92.42 10/04/19 07:05 Random Glucose 92 mg/dL (74-106) 10/04/19 07:05 Calcium 8.6 mg/dL (8.5-10.1) 10/04/19 07:05 Total Bilirubin 0.3 mg/dL (0.2-1) 10/04/19 07:05 AST 33 U/L (15-37) 10/04/19 07:05 ALT 61 U/L (13-61) 10/04/19 07:05 Alkaline Phosphatase 109 U/L (45-117) 10/04/19 07:05 Total Protein 6.0 g/dl (6.4-8.2) L 10/04/19 07:05 Albumin 3.0 g/dl (3.4-5.0) L 10/04/19 07:05 Syphilis Serology Non-reactive (NONREACTIVE) 10/04/19 07:05 Labs noted, COVID 19 pending. Assessment: 10/05/19 13:16 Alert and oriented x3, in no acute respiratory distress. Full ROM, ambulatory on unit. Withdrawal symptoms. Plan: Continue detox protocol.
[2019-10-05] MEDS: THIAMINE HCL 100 MG TABLET (FP) PO SCH (23:53)
[2019-10-05] MEDS: MELATONIN 5 MG TABLETS PO SCH (23:53)
[2019-10-06] MEDS ORDERED: chlordiazePOXIDE HCL 10 MG CAPSULE PO PRN
[2019-10-06] MEDS: METHADONE HCL 40 MG DISPERSABLE TABLET PO SCH (06:09)
[2019-10-06] MEDS: chlordiazePOXIDE HCL 10 MG CAPSULE PO SCH ×3 (06:10→17:26)
[2019-10-06] MEDS: hydrOXYzine PAMOATE 25 MG CAPSULE (FP) PO SCH ×4 (06:10→17:26)
[2019-10-06] MEDS: PRENATAL VITAMINS W/ FOLIC ACID TABLET (FP) PO SCH (10:28)
[2019-10-06] MEDS: NICOTINE 7 MG/24 HOURS TOPICAL PATCH TD SCH (10:28)
--- NOTE | 2019-10-06 14:26 | PN ---
[facility] CIWA - CIWA Score Nausea/Vomitin-No Nausea/No Vomiting Muscle Tremors: 2 Anxiety: 2 Agitation: 2 Paroxysmal Sweats: 2 Orientation: 0-Oriented Tacttile Disturbances: 0-None Auditory Disturbances: 0-None Visual Disturbances: 0-None Headache: 0-None Present CIWA-Ar Total Score: 8 BHS Progress Note (SOAP) Subjective: Goosebumps. Patient has long healthy looking hair (stated he grows his hair long and donates to [employer] every February) Objective: 10/06/19 14:23 Last Vital Signs Temp Pulse Resp BP Pulse Ox 97.3 F L 56 L 19 124/77 99 10/06/19 12:43 10/06/19 12:43 10/06/19 12:43 10/06/19 12:43 10/06/19 12:43 Laboratory Tests 10/03/19 10/04/19 10/04/19 15:45 07:05 07:05 WBC 4.3 RBC 4.50 Hgb 12.5 Hct 38.4 MCV 85.3 MCH 27.9 MCHC 32.6 RDW 13.2 Plt Count 166 MPV 9.3 Sodium Potassium Chloride Carbon Dioxide Anion Gap BUN Creatinine Est GFR (CKD-EPI)AfAm Est GFR (CKD-EPI)NonAf Random Glucose Calcium Total Bilirubin AST ALT Alkaline Phosphatase Total Protein Albumin Syphilis Serology Non-reactive COVID-19 (JASE) Not detected 10/04/19 07:05 WBC RBC Hgb Hct MCV MCH MCHC RDW Plt Count MPV Sodium 143 Potassium 3.9 Chloride 110 H Carbon Dioxide 28 Anion Gap 5 L BUN 14.2 Creatinine 1.0 Est GFR (CKD-EPI)AfAm 107.12 Est GFR (CKD-EPI)NonAf 92.42 Random Glucose 92 Calcium 8.6 Total Bilirubin 0.3 AST 33 ALT 61 Alkaline Phosphatase 109 Total Protein 6.0 L Albumin 3.0 L Syphilis Serology COVID-19 (JASE) Labs reviewed: total protein/albumin (low) Assessment: 10/06/19 14:26 Withdrawal sxs Noted with malnutrition (low total protein/hypoalbuminemia) Plan: Continue detox Encouraged PO water hydration Malnutrition (low total protein/hypoalbuminemia): encouraged diet, add ensure 1 cup PO TID
[2019-10-06 18:12] VITALS: BP 123/80; PULSE 62; TEMP 97.7
--- NOTE | 2019-10-06 19:57 | DS ---
[facility] Detox Discharge Summary Admission Date: 10/03/19 Discharge Date: 10/06/19 - History Present History: Alcohol Dependence Pertinent Past History: Opioid use disorder - Physical Exam Results Vital Signs: Vital Signs Temperature 97.7 F 10/06/19 17:07 Pulse Rate 62 10/06/19 17:07 Respiratory Rate 18 10/06/19 17:07 Blood Pressure 123/80 10/06/19 17:07 O2 Sat by Pulse Oximetry (%) 99 10/06/19 12:43 Pertinent Admission Physical Exam Findings: withdrawal sx Laboratory Last Values WBC 4.3 K/mm3 (4.0-10.0) 10/04/19 07:05 RBC 4.50 M/mm3 (4.00-5.60) 10/04/19 07:05 Hgb 12.5 GM/dL (11.7-16.9) 10/04/19 07:05 Hct 38.4 % (35.4-49) 10/04/19 07:05 MCV 85.3 fl (80-96) 10/04/19 07:05 MCH 27.9 pg (25.7-33.7) 10/04/19 07:05 MCHC 32.6 g/dl (32.0-35.9) 10/04/19 07:05 RDW 13.2 % (11.9-15.9) 10/04/19 07:05 Plt Count 166 K/MM3 (134-434) 10/04/19 07:05 MPV 9.3 fl (7.5-11.1) 10/04/19 07:05 Sodium 143 mmol/L (136-145) 10/04/19 07:05 Potassium 3.9 mmol/L (3.5-5.1) 10/04/19 07:05 Chloride 110 mmol/L (98-107) H 10/04/19 07:05 Carbon Dioxide 28 mmol/L (21-32) 10/04/19 07:05 Anion Gap 5 MMOL/L (8-16) L 10/04/19 07:05 BUN 14.2 mg/dL (7-18) 10/04/19 07:05 Creatinine 1.0 mg/dL (0.55-1.3) 10/04/19 07:05 Est GFR (CKD-EPI)AfAm 107.12 10/04/19 07:05 Est GFR (CKD-EPI)NonAf 92.42 10/04/19 07:05 Random Glucose 92 mg/dL (74-106) 10/04/19 07:05 Calcium 8.6 mg/dL (8.5-10.1) 10/04/19 07:05 Total Bilirubin 0.3 mg/dL (0.2-1) 10/04/19 07:05 AST 33 U/L (15-37) 10/04/19 07:05 ALT 61 U/L (13-61) 10/04/19 07:05 Alkaline Phosphatase 109 U/L (45-117) 10/04/19 07:05 Total Protein 6.0 g/dl (6.4-8.2) L 10/04/19 07:05 Albumin 3.0 g/dl (3.4-5.0) L 10/04/19 07:05 Syphilis Serology Non-reactive (NONREACTIVE) 10/04/19 07:05 COVID-19 (JASE) Not detected (Not Detected) 10/03/19 15:45 - Medication Discharge Medications: Ambulatory Orders NK [No Known Home Medication] 09/15/14 Methadone HCl 80 mg PO DAILY 10/03/19 - Diagnosis (1) Opioid dependence on agonist therapy Current Visit: Yes Status: Acute (2) Alcohol dependence with uncomplicated withdrawal Current Visit: No Status: Acute - AMA Did Patient Leave Against Medical Advice: Yes (Patient adamant on leaving because his sleep was interrupted)
[2019-10-07] MEDS ORDERED: chlordiazePOXIDE HCL 10 MG CAPSULE PO SCH (05:00)
[2019-10-08] MEDS ORDERED: chlordiazePOXIDE HCL 10 MG CAPSULE PO ONE (05:00)
== END 2019-10-06 07:47 | disposition left against medical advice (07) | DRG 770 ==
LOC: YASAS 13:57 → Y6N 15:18
PROVIDERS: ADMIT Allergy & Immunology; ATTEND Allergy & Immunology
PROC: HZ2ZZZZ Detoxification Services for Substance Abuse Treatment (ICD-10-PCS; principal; 2019-10-03)
DX: F10.230 Alcohol dependence with withdrawal, uncomplicated (principal); F11.20 Opioid dependence, uncomplicated; F41.9 Anxiety disorder, unspecified; E46 Unspecified protein-calorie malnutrition; Z68.27 Body mass index [BMI] 27.0-27.9, adult; Z86.19 Personal history of other infectious and parasitic diseases; Z91.018 Allergy to other foods
CPT/HCPCS: 36415; 80053; 85027; 86780; 93005; 93010; U0003

== ENCOUNTER 2019-12-10 14:12 | Inpatient (IN) | payer BC ==
--- NOTE | 2019-12-10 14:58 | BHS.RME ---
Substance Use & Tx History - Substance Use History Alcohol Substance amount: 1 quart Frequency of use: Daily Substance route: Oral Date of Last Use: 12/10/19 (staryted age 17) Heroin Substance amount: 1 bag Frequency of use: Daily Substance route: Inhalation (ex: sniffing or snorting) Date of Last Use: 12/10/19 (started age 17) Cocaine- Powder Substance amount: $20 Frequency of use: Daily Substance route: Inhalation (ex: sniffing or snorting) Date of Last Use: 12/10/19 Physical/Psych/Mental Status - Behavior General Behavior: Increased activity (restlessness, agitation) Eye Contact: Normal - Cooperativeness Cooperativeness: Cooperative - Thinking Thought Processes: Tight, Logical, Goal Directed - Physical Health Problems Is patient presently having any pain?: No Does patient presently have any injuries (include location): No Does patient currently have a fever: No Is patient : No CIWA Nausea/Vomitin Muscle Tremors: 3 Anxiety: 4-Mod. Anxious/Guarded Agitation: 4-Moderately Restless Paroxysmal Sweats: 1-Minimal Palms Moist Orientation: 0-Oriented Tacttile Disturbances: 1-Very Mild Itch/Numbness Auditory Disturbances: 0-None Visual Disturbances: 0-None Headache: 0-None Present CIWA-Ar Total Score: 15
--- NOTE | 2019-12-10 15:15 | HP ---
COWS - Scale Resting Pulse: 1= TN 81-100 Sweatin= No chills or Flushing Restless Observation: 0= Sits Still Pupil Size: 0= Normal to Room Light Bone or Joint Aches: 0= None Runny Nose/ Eye Tearin= None GI Upset > 30mins: 0= None Tremor Observation: 0= None Yawning Observation: 0= None Anxiety or Irritability: 2=Irritable/Anxious Goose Flesh Skin: 0=Smooth Skin (Patient is not currently in full withdrawal and is at high risk of relapse) COWS Score: 3 CIWA Score Nausea/Vomitin Muscle Tremors: 3 Anxiety: 4-Mod. Anxious/Guarded Agitation: 4-Moderately Restless Paroxysmal Sweats: 1-Minimal Palms Moist Orientation: 0-Oriented Tacttile Disturbances: 1-Very Mild Itch/Numbness Auditory Disturbances: 0-None Visual Disturbances: 0-None Headache: 0-None Present CIWA-Ar Total Score: 15 - Admission Criteria OASAS Guidelines: Admission for Medically Managed Detox: Requires at least one of the followin. CIWA greater than 12 2. Seizures within the past 24 hours 3. Delirium tremens within the past 24 hours 4. Hallucinations within the past 24 hours 5. Acute intervention needed for co occurring medical disorder 6. Acute intervention needed for co occurring psychiatric disorder 7. Severe withdrawal that cannot be handled at a lower level of care (continued vomiting, continued diarrhea, abnormal vital signs) requiring intravenous medication and/or fluids 8. Admitting History and Physical - Admission History of Present Illness: Patient is a 44 y.o. M PMHx of Hep C treated presenting to [facility] for substance abuse. Patient was examined and is in no acute distress. 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 Heroin 1 bag IV no overdoses. Cocaine IV/IN 20$ 3x weekly. 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 Cardiovascular: No: HTN, Hyperlipdemia Pulmonary: No: Pneumonia, Pulmonary Embolus Hepatobiliary: Yes: Hepatitis C (Treated.) Psych: Yes: Anxiety - Past Surgical History Past Surgical History: Yes: None - Smoking History Smoking history: Never smoked Have you smoked in the past 12 months: No Aproximately how many cigarettes per day: 0 - Alcohol/Substance Use Hx Alcohol Use: Yes Number of Drinks Daily: 40 (2 pints of Baccardi ) History of Substance Use: reports: Cocaine, Heroin - Social History Usual Living Arrangement: Yes: Alone ADL: Independent History of Recent Travel: No Admission [facility] Allergies/Adverse Reactions: Allergies Allergy/AdvReac Type Severity Reaction Status Date / Time Fish Containing Products Allergy Severe Swelling Verified 11/04/19 21:23 No Known Drug Allergies Allergy Verified 11/04/19 21:23 NKDA Allergy Uncoded 11/04/19 21:23 - Ebola screening Have you traveled outside of the country in the last 21 days: No Have you had contact with anyone from an Ebola affected area: No Have you been sick,other than usual withdrawal symptoms: No Do you have a fever: No - Review of Systems Constitutional: No Symptoms Reported EENT: denies: Blurred Vision Respiratory: denies: Cough, Shortness of Breath Cardiac: denies: Chest Pain, Lightheadedness GI: denies: Constipated, Diarrhea, Nausea, Vomiting : denies: Burning, Dysuria Musculoskeletal: denies: Muscle Pain, Muscle Weakness Neuro: denies: Headache, Dizziness Hematology: denies: Easy Bleeding Psychiatric: reports: Judgement Intact, Mood/Affect Appropiate, Orientated x3, Anxious Patient History - Patient Medical History Hx Anemia: No Hx Asthma: No Hx Chronic Obstructive Pulmonary Disease (COPD): No Hx Cardiac Disorders: No Hx Hypertension: No Hx Hypercholesterolemia: No HX Cerebrovascular Accident: No Hx Seizures: No Hx Diabetes: No Hx Gastrointestinal Disorders: No Hx Liver Disease: No Hx Genitourinary Disorders: No Hx Sexually Transmitted Disorders: No Hx Renal Disease (ESRD): No Hx Thyroid Disease: No Hx Human Immunodeficiency Virus (HIV): No (NEGATIVE HX) Hx Hepatitis C: Yes (RECIEVED [place], V.LOAD ZERO PER PT) Hx Depression: No Hx Suicide Attempt: No Hx Bipolar Disorder: No Hx Schizophrenia: No - Patient Surgical History Past Surgical History: No Hx Neurologic Surgery: No Hx Cataract Extraction: No Hx Cardiac Surgery: No Hx Lung Surgery: No Hx Breast Surgery: No Hx Breast Biopsy: No Hx Abdominal Surgery: No Hx Appendectomy: No Hx Cholecystectomy: No Hx Genitourinary Surgery: No Hx Section: No Hx Orthopedic Surgery: No Anesthesia Reaction: No - PPD History Date: 10/05/19 Results: 0 mm - Smoking Cessation Smoking history: Never smoked Have you smoked in the past 12 months: No Aproximately how many cigarettes per day: 0 Cigars Per Day: 0 Hx Chewing Tobacco Use: No Admission Physical Exam [facility] - Physical General Appearance: Yes: Within Normal Limits, No Apparent Distress, Nourished, Appropriately Dressed HEENTM: Yes: Microcephalic Respiratory: Yes: Within Normal Limits, Normal Breath Sounds, No Respiratory Distress, No Accessory Muscle Use Cardiology: Yes: Within Normal Limits, Regular Rhythm, Regular Rate Abdominal: Yes: Within Normal Limits, Normal Bowel Sounds, Non Tender, Flat, Soft. No: Tenderness Back: Yes: Within Normal Limits, Normal Inspection. No: CVA Tenderness Musculoskeletal: Yes: Within Normal Limits Extremities: Yes: Within Normal Limits, Non-Tender. No: Tremors, Calf Tenderness Neurological: Yes: Within Normal Limits, Fully Oriented, Normal Mood/Affect, Normal Response Integumentary: Yes: Within Normal Limits, Normal Color, Dry, Warm - Diagnostic (1) Nicotine dependence Current Visit: No Status: Acute Qualifiers: Nicotine product type: cigarettes Substance use status: uncomplicated Qualified Code(s): F17.210 - Nicotine dependence, cigarettes, uncomplicated (2) Alcohol dependence with uncomplicated withdrawal Current Visit: No Status: Chronic (3) Cocaine dependence Current Visit: No Status: Chronic Qualifiers: Substance use status: uncomplicated Qualified Code(s): F14.20 - Cocaine dependence, uncomplicated (4) Opioid dependence with withdrawal Current Visit: No Status: Chronic Cleared for Admission [facility] - Detox or Rehab [facility] Level of Care: Medically Managed Detox Regimen/Protocol: Librium Breathalyzer - Breathalyzer Breathalyzer: 0.010 Vital Signs - Vital Signs Vital signs refused: Yes Temperature: 98.6 F Pulse Rate: 81 Respiratory Rate: 14 Blood Pressure: 102/67 - Height Height: 1.7 m - Weight Weight: 83.915 kg - BMI Body Mass Index (BMI): 29.0 Urine Drug Screen - Test Device Lot number: [id number] Expiration date: 07/02/21 - Control Is test valid?: Yes - Results Drug screen NEGATIVE: No Urine drug screen results: MARIANNE-Cocaine, FEN-Fentanyl, MOP-Opiates, MTD- Methadone, BZO-Benzodiazepines Inpatient Rehab Admission - Rehab Decision to Admit Inpatient rehab admission?: No
[2019-12-10 15:21] VITALS: BMI 29.0
--- OUTSIDE RECORDS SUMMARY | 2019-12-10 15:22 | XMS ---
:1975 Author Organization [facility] Support Name Relationship Address Phone UE Unavailable Unavailable [place] [address] [place] [address] Re-disclosure Warning The records that you are about to access may contain information from federally- assisted alcohol or drug abuse programs. If such information is present, then the following federally mandated warning applies: This information has been disclosed to you from records protected by federal confidentiality rules (42 CFR part 2). The federal rules prohibit you from making any further disclosure of this information unless further disclosure is expressly permitted by the written consent of the person to whom it pertains or as otherwise permitted by 42 CFR part 2. A general authorization for the release of medical or other information is NOT sufficient for this purpose. The Federal rules restrict any use of the information to criminally investigate or prosecute any alcohol or drug abuse patient.The records that you are about to access may contain highly sensitive health information, the redisclosure of which is protected by Article 27-F of the [facility] Public Health law. If you continue you may haveaccess to information: Regarding HIV / AIDS; Provided by facilities licensed or operated by the [facility] Office of Mental Health; or Provided by the [facility] Office for People With Developmental Disabilities. If such information is present, then the following [facility] mandated warning applies: This information has been disclosed to you from confidential records which are protected by state law. State law prohibits you from making any further disclosure of this information without the specific written consent of the person to whom it pertains, or as otherwise permitted by law. Any unauthorized further disclosure in violation of state law may result in a fine or skilled nursing sentence or both. A general authorization for the release of medical or other information is NOT sufficient authorization for further disclosure. Insurance Providers Payer name Policy type Policy ID Covered Covered constitution party's Policy P jolanta / Coverage constitution party ID relationship to [place] Inf ormation type zuleta DICKSON BC BS [id number] SP [id number] [employer] [id number] MEDICAID [id number] SP [id number] Results ID Date Data Source [id number] 11/04/2019 08:21:00 PM EDT [facility] Name Value Range Interpretation Description Data Sup porting Code Source(s) Document(s ) SARS [facility] coronavirus 2 RNA This lab was ordered by Enedina Archibald ct [facility] and reported by [facility]. ID Date Data Source [id number] 10/03/2019 03:45:00 PM EDT [facility] Name Value Range Interpretation Description Data Sup porting Code Source(s) Document(s ) SARS [facility] coronavirus 2 RNA This lab was ordered by Enedina Archibald ct [facility] and reported by [facility]. Procedure
[2019-12-10] MEDS ORDERED: MAGNESIUM HYDROX 2400MG/30ML ORAL SUSPENSION 30 ML CUP PO PRN (15:24)
[2019-12-10] MEDS ORDERED: IBUPROFEN 400 MG TABLET (FP) PO PRN (15:24)
[2019-12-10] MEDS ORDERED: MENTHOL/PHENOL 1 EACH UD MM PRN (15:24)
[2019-12-10] MEDS ORDERED: BISMUTH SUBSALICYLATE 524 MG/30 ML UD PO PRN (15:24)
[2019-12-10] MEDS ORDERED: MAG HYDROX/AL HYDROX/SIMETH 30 ML UNIT-DOSE CUP PO PRN (15:24)
[2019-12-10] MEDS ORDERED: ONDANSETRON *ODT* 4 MG TABLET SL PRN (15:24)
[2019-12-10] MEDS ORDERED: chlordiazePOXIDE HCL 25 MG CAPSULE PO PRN (15:24)
[2019-12-10] MEDS ORDERED: METHOCARBAMOL 500 MG TABLET PO PRN (15:24)
[2019-12-10] MEDS ORDERED: NICOTINE POLACRILEX 2 MG GUM BUC PRN (15:24)
[2019-12-10] MEDS ORDERED: ACETAMINOPHEN 325 MG TABLET (FP) PO PRN ×2 (15:24)
[2019-12-10] MEDS ORDERED: MAGNESIUM CITRATE 300 ML BOTTLE PO PRN (15:24)
[2019-12-10 17:19] LABS: HEMATOCRIT 38.7 % (35.4-49); HEMOGLOBIN 12.7 GM/dL (11.7-16.9); MCH 27.5 pg (25.7-33.7); MCHC 32.9 g/dl (32.0-35.9); MEAN CELL VOLUME 83.6 fl (80-96); MEAN PLT VOLUME 9.9 fl (7.5-11.1); PLATELET COUNT 139 K/MM3 (134-434); RBC 4.63 M/mm3 (4.00-5.60); RDW 14.4 % (11.9-15.9); WHITE BLOOD COUNT 14.1 K/mm3 (4.0-10.0)
[2019-12-10 17:21] LABS: ALBUMIN 3.3 g/dl (3.4-5.0); BILIRUBIN,TOTAL 0.4 mg/dL (0.2-1); BLOOD UREA NITROGEN 18.4 mg/dL (7-18); CREATININE 1.2 mg/dL (0.55-1.3); TOT PROT 6.9 g/dl (6.4-8.2)
[2019-12-10] MEDS: hydrOXYzine PAMOATE 25 MG CAPSULE (FP) PO SCH ×2 (18:41→22:50)
[2019-12-10] MEDS: chlordiazePOXIDE HCL 25 MG CAPSULE PO SCH ×2 (18:41→22:50)
--- OUTSIDE RECORDS SUMMARY | 2019-12-10 18:43 | XMS ---
:1975 Author [facility] Support Name Relationship Address Phone UE Unavailable Unavailable [place] [address] [place] [address] Re-disclosure Warning The records that you are [...] is protected by Article 27-F of the [facility] Public Health law. If you continue you may haveaccess to information: Regarding HIV / AIDS; Provided by facilities licensed or operated by the [facility] Office of Mental Health; or Provided by the [facility] Office for People With Developmental Disabilities. If such information is present, then the following [facility] mandated warning applies: This information [...] law may result in a fine or longterm sentence or both. A general authorization for the release of medical or other information is NOT sufficient authorization for further disclosure. Insurance Providers Payer name Policy type Policy ID Covered Covered green party's Policy P jolanta / Coverage green party ID relationship to [place] Inf ormation type zuleta DICKSON BC BS [id number] SP [id number] [employer]US 80 MEDICAID [id number] SP [id number] Results ID Date Data Source [id number] 11/04/2019 08:21:00 PM EDT [facility] Name Value Range Interpretation Description Data Sup porting Code Source(s) Document(s ) SARS [facility] coronavirus 2 RNA This lab was ordered by Enedina Archibald ct [facility] and reported by [facility]. ID Date Data Source [id number] 10/03/2019 03:45:00 PM EDT [facility] Name Value Range Interpretation Description Data Sup porting Code Source(s) Document(s ) SARS [facility] coronavirus 2 RNA This lab was ordered by Enedina Archibald ct [facility] and reported by [facility]. Procedure
[2019-12-10] MEDS: MELATONIN 5 MG TABLETS PO SCH (22:50)
[2019-12-10] MEDS: THIAMINE HCL 100 MG TABLET (FP) PO SCH (22:50)
[2019-12-11] MEDS: chlordiazePOXIDE HCL 25 MG CAPSULE PO SCH ×4 (07:13→22:58)
[2019-12-11] MEDS: hydrOXYzine PAMOATE 25 MG CAPSULE (FP) PO SCH ×5 (07:14→22:58)
--- NOTE | 2019-12-11 09:02 | PN ---
Teaching Attending Note Name of Resident: Reymundo Alberts ATTENDING PHYSICIAN STATEMENT I saw and evaluated the patient. I reviewed the resident's note and discussed the case with the resident. I agree with the resident's findings and plan as documented. SUBJECTIVE: OBJECTIVE: ASSESSMENT AND PLAN: Agree with resident's findings and plan for detox.
--- NOTE | 2019-12-11 09:45 | PN ---
S CIWA - CIWA Score Nausea/Vomitin-Mild Nausea/No Vomiting Muscle Tremors: 3 Anxiety: 2 Agitation: 0-Normal Activity Paroxysmal Sweats: 1-Minimal Palms Moist Orientation: 0-Oriented Tacttile Disturbances: 0-None Auditory Disturbances: 0-None Visual Disturbances: 2-Mild Sensitivity Headache: 2-Mild CIWA-Ar Total Score: 11 S Progress Note (SOAP) Subjective: 44 years old male was admitted on 12/10/19 for alcohol withdrawal sx management treating with librium regiment feels tired resting in bed prefers to sleep longer agrees to engage with staff later Objective: 12/11/19 09:49 Vital Signs - 24 hr 12/10/19 12/10/19 12/10/19 15:23 15:46 15:54 Temperature 98.6 F 98.6 F 98.6 F Pulse Rate 81 81 81 Respiratory 14 14 14 Rate Blood Pressure 102/67 102/67 102/67 O2 Sat by Pulse Oximetry (%) 12/10/19 12/10/19 12/11/19 18:00 21:11 06:30 Temperature 97.1 F L 97.5 F L 97.0 F L Pulse Rate 84 65 65 Respiratory 18 17 18 Rate Blood Pressure 103/68 111/73 100/54 L O2 Sat by Pulse 98 98 100 Oximetry (%) 12/11/19 09:07 Temperature 97.5 F L Pulse Rate 56 L Respiratory 20 Rate Blood Pressure 93/62 O2 Sat by Pulse Oximetry (%) Laboratory Tests 12/10/19 12/10/19 12/10/19 14:30 14:30 14:30 WBC 14.1 H RBC 4.63 Hgb 12.7 Hct 38.7 MCV 83.6 MCH 27.5 MCHC 32.9 RDW 14.4 Plt Count 139 MPV 9.9 Sodium 140 Potassium 4.0 Chloride 104 Carbon Dioxide 32 Anion Gap 4 L BUN 18.4 H Creatinine 1.2 Est GFR (CKD-EPI)AfAm 85.92 Est GFR (CKD-EPI)NonAf 74.14 Random Glucose 82 Calcium 9.0 Total Bilirubin 0.4 AST 42 H ALT 70 H Alkaline Phosphatase 98 Total Protein 6.9 Albumin 3.3 L Syphilis Serology Non-reactive wbc elevation covid pending repeat cbc Assessment: 12/11/19 09:54 alcohol withdrawal Plan: librium regiment
[2019-12-11] MEDS ORDERED: METHADONE HCL 40 MG DISPERSABLE TABLET PO ONE (10:00)
[2019-12-11] MEDS: PRENATAL VITAMINS W/ FOLIC ACID TABLET (FP) PO SCH (10:34)
[2019-12-11] MEDS: NICOTINE 7 MG/24 HOURS TOPICAL PATCH TD SCH (10:34)
--- NOTE | 2019-12-11 12:28 | CONSULT ---
[facility] Psychiatric Consult - Data Date of interview: 12/11/19 Admission source: [facility] Identifying data: Backup Sawyer not able to conduct psychiatric interview. Patient is approached at bedside. Declines.
[2019-12-11] MEDS: THIAMINE HCL 100 MG TABLET (FP) PO SCH (22:57)
[2019-12-11] MEDS: MELATONIN 5 MG TABLETS PO SCH (22:58)
[2019-12-12] MEDS: METHADONE HCL 40 MG DISPERSABLE TABLET PO SCH (06:42)
[2019-12-12] MEDS: chlordiazePOXIDE HCL 25 MG CAPSULE PO SCH ×4 (06:43→23:23)
[2019-12-12] MEDS: hydrOXYzine PAMOATE 25 MG CAPSULE (FP) PO SCH ×5 (06:43→23:22)
[2019-12-12] MEDS: PRENATAL VITAMINS W/ FOLIC ACID TABLET (FP) PO SCH (10:03)
[2019-12-12] MEDS: NICOTINE 7 MG/24 HOURS TOPICAL PATCH TD SCH (10:03)
--- NOTE | 2019-12-12 12:00 | PN ---
[facility] CIWA - CIWA Score Nausea/Vomitin-Mild Nausea/No Vomiting Muscle Tremors: 2 Anxiety: 2 Agitation: 2 Paroxysmal Sweats: No Perspiration Orientation: 0-Oriented Tacttile Disturbances: 1-Very Mild Itch/Numbness Auditory Disturbances: 0-None Visual Disturbances: 0-None Headache: 1-Very Mild CIWA-Ar Total Score: 9 S Progress Note (SOAP) Subjective: alert,irritable,anxious,interrupted sleep,tremor,aching pain Objective: 12/12/19 17:39 Vital Signs Temperature 97.5 F L 12/12/19 12:50 Pulse Rate 64 12/12/19 12:50 Respiratory Rate 18 12/12/19 12:50 Blood Pressure 117/86 12/12/19 12:50 O2 Sat by Pulse Oximetry (%) 98 12/12/19 12:50 Laboratory Last Values WBC 14.1 K/mm3 (4.0-10.0) H 12/10/19 14:30 RBC 4.63 M/mm3 (4.00-5.60) 12/10/19 14:30 Hgb 12.7 GM/dL (11.7-16.9) 12/10/19 14:30 Hct 38.7 % (35.4-49) 12/10/19 14:30 MCV 83.6 fl (80-96) 12/10/19 14:30 MCH 27.5 pg (25.7-33.7) 12/10/19 14:30 MCHC 32.9 g/dl (32.0-35.9) 12/10/19 14:30 RDW 14.4 % (11.9-15.9) 12/10/19 14:30 Plt Count 139 K/MM3 (134-434) 12/10/19 14:30 MPV 9.9 fl (7.5-11.1) 12/10/19 14:30 Sodium 140 mmol/L (136-145) 12/10/19 14:30 Potassium 4.0 mmol/L (3.5-5.1) 12/10/19 14:30 Chloride 104 mmol/L (98-107) 12/10/19 14:30 Carbon Dioxide 32 mmol/L (21-32) 12/10/19 14:30 Anion Gap 4 MMOL/L (8-16) L 12/10/19 14:30 BUN 18.4 mg/dL (7-18) H 12/10/19 14:30 Creatinine 1.2 mg/dL (0.55-1.3) 12/10/19 14:30 Est GFR (CKD-EPI)AfAm 85.92 12/10/19 14:30 Est GFR (CKD-EPI)NonAf 74.14 12/10/19 14:30 Random Glucose 82 mg/dL (74-106) 12/10/19 14:30 Calcium 9.0 mg/dL (8.5-10.1) 12/10/19 14:30 Total Bilirubin 0.4 mg/dL (0.2-1) 12/10/19 14:30 AST 42 U/L (15-37) H 12/10/19 14:30 ALT 70 U/L (13-61) H 12/10/19 14:30 Alkaline Phosphatase 98 U/L (45-117) 12/10/19 14:30 Total Protein 6.9 g/dl (6.4-8.2) 12/10/19 14:30 Albumin 3.3 g/dl (3.4-5.0) L 12/10/19 14:30 Syphilis Serology Non-reactive (NONREACTIVE) 12/10/19 14:30 COVID-19 (JASE) Not detected (Not Detected) 12/10/19 16:00 Assessment: 12/12/19 17:39 withdrawal symptom Plan: continue detox librium regimen,encourage fluid,continue methadone maintenance 80 mgs/day maintenance,repeat cbc in am intialcbc wbc is 14,100
[2019-12-12] MEDS: THIAMINE HCL 100 MG TABLET (FP) PO SCH (23:22)
[2019-12-12] MEDS: MELATONIN 5 MG TABLETS PO SCH (23:22)
[2019-12-13] MEDS ORDERED: chlordiazePOXIDE HCL 10 MG CAPSULE PO PRN
[2019-12-13] MEDS ORDERED: chlordiazePOXIDE HCL 10 MG CAPSULE PO SCH (05:00)
[2019-12-13] MEDS: METHADONE HCL 40 MG DISPERSABLE TABLET PO SCH (07:16)
[2019-12-13] MEDS: hydrOXYzine PAMOATE 25 MG CAPSULE (FP) PO SCH (07:16)
[2019-12-13 09:21] VITALS: BP 126/91; PULSE 67; TEMP 97.3
--- NOTE | 2019-12-13 09:46 | PN ---
S CIWA - CIWA Score Nausea/Vomitin-No Nausea/No Vomiting Muscle Tremors: None Anxiety: 0-No Anxiety, at Ease Agitation: 0-Normal Activity Paroxysmal Sweats: No Perspiration Orientation: 0-Oriented Tacttile Disturbances: 0-None Auditory Disturbances: 0-None Visual Disturbances: 0-None Headache: 0-None Present CIWA-Ar Total Score: 0 BHS Progress Note (SOAP) Subjective: Patient was examined in the room. Patient was already awake cleaning the break room. Patient stated he was feeling well and was overall happy. Patient had no complaints. Objective: 12/13/19 09:44 PE: General: No acute distress, alert and awake MSK: gait normal, pelvis stable, normal range of motion Skin: No lesions or abrasions skin color normal. MS: responds appropriately to questions, oriented x3, pleasant demeanor 12/13/19 09:46 Last Vital Signs Temp Pulse Resp BP Pulse Ox 97.3 F L 67 16 126/91 100 12/13/19 08:55 12/13/19 08:55 12/13/19 08:55 12/13/19 08:55 12/13/19 08:55 CBC,CMP WBC 14.1 K/mm3 (4.0-10.0) H 12/10/19 14:30 RBC 4.63 M/mm3 (4.00-5.60) 12/10/19 14:30 Hgb 12.7 GM/dL (11.7-16.9) 12/10/19 14:30 Hct 38.7 % (35.4-49) 12/10/19 14:30 MCV 83.6 fl (80-96) 12/10/19 14:30 MCH 27.5 pg (25.7-33.7) 12/10/19 14:30 MCHC 32.9 g/dl (32.0-35.9) 12/10/19 14:30 RDW 14.4 % (11.9-15.9) 12/10/19 14:30 Plt Count 139 K/MM3 (134-434) 12/10/19 14:30 MPV 9.9 fl (7.5-11.1) 12/10/19 14:30 Sodium 140 mmol/L (136-145) 12/10/19 14:30 Potassium 4.0 mmol/L (3.5-5.1) 12/10/19 14:30 Chloride 104 mmol/L (98-107) 12/10/19 14:30 Carbon Dioxide 32 mmol/L (21-32) 12/10/19 14:30 Anion Gap 4 MMOL/L (8-16) L 12/10/19 14:30 BUN 18.4 mg/dL (7-18) H 12/10/19 14:30 Creatinine 1.2 mg/dL (0.55-1.3) 12/10/19 14:30 Est GFR (CKD-EPI)AfAm 85.92 12/10/19 14:30 Est GFR (CKD-EPI)NonAf 74.14 12/10/19 14:30 Random Glucose 82 mg/dL (74-106) 12/10/19 14:30 Calcium 9.0 mg/dL (8.5-10.1) 12/10/19 14:30 Total Bilirubin 0.4 mg/dL (0.2-1) 12/10/19 14:30 AST 42 U/L (15-37) H 12/10/19 14:30 ALT 70 U/L (13-61) H 12/10/19 14:30 Alkaline Phosphatase 98 U/L (45-117) 12/10/19 14:30 Total Protein 6.9 g/dl (6.4-8.2) 12/10/19 14:30 Albumin 3.3 g/dl (3.4-5.0) L 12/10/19 14:30 Current Medications Generic Name Dose Route Start Last Admin Trade Name Freq PRN Reason Stop Dose Admin Acetaminophen 650 mg 12/10/19 15:24 Tylenol - PO Q6H PRN PAIN LEVEL 4 - 6 Acetaminophen 650 mg 12/10/19 15:24 Tylenol - PO Q6H PRN FEVER Al Hydroxide/Mg Hydroxide 30 ml 12/10/19 15:24 Mylanta Oral Suspension - PO Q6H PRN DYSPEPSIA Bismuth Subsalicylate 524 mg 12/10/19 15:24 Pepto-Bismol - PO Q1H PRN DIARRHEA Chlordiazepoxide HCl 10 mg 12/13/19 05:00 12/13/19 07:16 Librium - PO 09/18/20 23:01 10 mg [id number] KERRI Administration Chlordiazepoxide HCl 10 mg 12/14/19 05:00 Librium - PO 12/14/19 17:01 Q12H KERRI Chlordiazepoxide HCl 10 mg 12/13/19 00:00 Librium - PO 12/14/19 00:00 Q4H PRN WITHDRAWAL(CONT SUBST) Chlordiazepoxide HCl 10 mg 12/15/19 05:00 Librium - PO 12/15/19 05:01 ONCE@0500 ONE Eucalyptus/Menthol/Phenol/Sorbitol 1 each 12/10/19 15:24 Cepastat Lozenge - MM 12/16/19 15:25 Q4H PRN SORE THROAT Hydroxyzine Pamoate 25 mg 12/10/19 18:00 12/13/19 07:16 Vistaril - PO 12/16/19 15:25 25 mg Q4HWA KERRI Administration Ibuprofen 400 mg 12/10/19 15:24 Motrin - PO Q6H PRN PAIN LEVEL 1 - 3 Magnesium Citrate 300 ml 12/10/19 15:24 Citroma - PO Q48H PRN CONSTIPATION Magnesium Hydroxide 30 ml 12/10/19 15:24 Milk Of Magnesia - PO PRN PRN CONSTIPATION Melatonin 5 mg 12/10/19 22:00 12/12/19 23:22 Melatonin PO Not Given [facility] Methadone HCl 80 mg 12/12/19 06:00 12/13/19 07:16 Dolophine - PO 12/18/19 06:01 80 mg DAILY@0600 [facility] Administration Methocarbamol 500 mg 12/10/19 15:24 Robaxin - PO 12/16/19 15:25 Q6H PRN MUSCLE SPASMS Nicotine 7 mg 12/11/19 10:00 12/12/19 10:03 Nicoderm Patch - TD Not Given DAILY [facility] Nicotine Polacrilex 2 mg 12/10/19 15:24 Nicorette Gum - BUC Q2H PRN NICOTINE REPLACEMENT RX Ondansetron HCl 4 mg 12/10/19 15:24 Zofran Odt - SL Q8H PRN Nausea/Vomiting Multivit/Folic Acid/Iron 1 tab 12/11/19 10:00 12/12/19 10:03 Vitamins (Sjr) - PO 1 tab DAILY [facility] Administration Thiamine HCl 100 mg 12/10/19 22:00 12/12/19 23:22 Vitamin B1 - PO Not Given HS KERRI Discontinued Medications Generic Name Dose Route Start Last Admin Trade Name Freq PRN Reason Stop Dose Admin Chlordiazepoxide HCl 50 mg 12/10/19 17:00 12/11/19 22:58 Librium - PO 12/11/19 23:01 50 mg [id number] KERRI Administration Chlordiazepoxide HCl 25 mg 12/12/19 05:00 12/12/19 23:23 Librium - PO 12/12/19 23:01 Not Given [id number] KERRI Chlordiazepoxide HCl 25 mg 12/10/19 15:24 Librium - PO 12/12/19 23:59 Q4H PRN WITHDRAWAL(CONT SUBST) Methadone HCl 80 mg 12/11/19 10:00 12/11/19 10:34 Dolophine - PO 12/11/19 10:01 80 mg ONCE ONE Administration Assessment: 12/13/19 09:45 Assessment: Patient is in detox due to alcohol and heroin on librium and methadone protocol day 3. Plan: Plan: Continue librium protocol Continue methadone protocol
--- NOTE | 2019-12-13 09:58 | DS ---
[facility] Detox Discharge Summary Admission Date: 12/10/19 Discharge Date: 12/13/19 - History Present History: Alcohol Dependence - Physical Exam Results Vital Signs: Vital Signs Temperature 97.3 F L 12/13/19 08:55 Pulse Rate 67 12/13/19 08:55 Respiratory Rate 16 12/13/19 08:55 Blood Pressure 126/91 12/13/19 08:55 O2 Sat by Pulse Oximetry (%) 100 12/13/19 08:55 Pertinent Admission Physical Exam Findings: PE Gnl: WDWN, in no distress MS: mild anxiety, was on phone and told he would loose his apartment if he does not appear today. He wants to return later for consideration to be admitted to rehab Motor: nl Gait; steady Imp 1. Alcohol use disorder, completed detox, no significant withdrawal sx 2. Methadone maintenence Plan 1. Will discharge pt as requested. Pt states he will return tonight to be considered for admission to rehab. I explained to pt that he will need to be retested for COVID upon return and, can not promise a bed will be available. Contact phone number for Pt. [facility] given to pt. - Treatment Hospital Course: Detox Protocol Followed, Detoxed Safely, Responded well, Discharged Condition Good - Medication Discharge Medications: Ambulatory Orders NK [No Known Home Medication] 12/10/19 - AMA Did Patient Leave Against Medical Advice: No (Pt insists on leaving, apartment problem)
[2019-12-13 14:02] LABS: HEMATOCRIT 43.3 % (35.4-49); HEMOGLOBIN 13.9 GM/dL (11.7-16.9); MCH 26.8 pg (25.7-33.7); MCHC 32.2 g/dl (32.0-35.9); MEAN CELL VOLUME 83.2 fl (80-96); MEAN PLT VOLUME 9.4 fl (7.5-11.1); PLATELET COUNT 187 K/MM3 (134-434); RDW 14.5 % (11.9-15.9); WHITE BLOOD COUNT 6.7 K/mm3 (4.0-10.0)
[2019-12-14] MEDS ORDERED: chlordiazePOXIDE HCL 10 MG CAPSULE PO SCH (05:00)
[2019-12-15] MEDS ORDERED: chlordiazePOXIDE HCL 10 MG CAPSULE PO ONE (05:00)
== END 2019-12-13 10:25 | disposition home or self-care (01) | DRG 773 ==
LOC: YASAS 14:12 → Y3N 16:11
PROVIDERS: ADMIT Allergy & Immunology; ATTEND Allergy & Immunology
PROC: HZ2ZZZZ Detoxification Services for Substance Abuse Treatment (ICD-10-PCS; principal; 2019-12-10)
DX: F10.230 Alcohol dependence with withdrawal, uncomplicated (principal); F11.23 Opioid dependence with withdrawal; F14.20 Cocaine dependence, uncomplicated; F17.210 Nicotine dependence, cigarettes, uncomplicated; Z86.19 Personal history of other infectious and parasitic diseases; Z91.013 Allergy to seafood
CPT/HCPCS: 36415; 80053; 85027; 86780; U0003

== ENCOUNTER 2020-12-23 14:12 | Inpatient (IN) | payer BC ==
[2020-12-23 15:25] VITALS: BMI 22.8
[2020-12-23] MEDS ORDERED: ONDANSETRON *ODT* 4 MG TABLET SL PRN (17:36)
[2020-12-23] MEDS ORDERED: MENTHOL/PHENOL 1 EACH UD MM PRN (17:36)
[2020-12-23] MEDS ORDERED: BISMUTH SUBSALICYLATE 524 MG/30 ML PO PRN (17:36)
[2020-12-23] MEDS ORDERED: MAGNESIUM CITRATE 300 ML BOTTLE PO PRN (17:36)
[2020-12-23] MEDS ORDERED: IBUPROFEN 400 MG TABLET (FP) PO PRN (17:36)
[2020-12-23] MEDS ORDERED: MAGNESIUM HYDROX 2400MG/30ML ORAL SUSPENSION 30 ML CUP PO PRN (17:36)
[2020-12-23] MEDS ORDERED: MAG HYDROX/AL HYDROX/SIMETH 30 ML UNIT-DOSE CUP PO PRN (17:36)
[2020-12-23] MEDS ORDERED: ACETAMINOPHEN 325 MG TABLET (FP) PO PRN ×2 (17:36)
[2020-12-23] MEDS ORDERED: hydrOXYzine PAMOATE 25 MG CAPSULE (FP) PO ONE (18:49)
[2020-12-23] MEDS ORDERED: METHOCARBAMOL 500 MG TABLET ONE (18:49)
[2020-12-23] MEDS: METHOCARBAMOL 500 MG TABLET PO PRN (18:52)
[2020-12-23] MEDS: hydrOXYzine PAMOATE 25 MG CAPSULE (FP) PO SCH ×2 (18:52→22:03)
[2020-12-23] MEDS ORDERED: MELATONIN 5 MG TABLETS PO SCH (22:00)
[2020-12-23] MEDS ORDERED: THIAMINE HCL 100 MG TABLET (FP) PO SCH (22:00)
[2020-12-24] MEDS: hydrOXYzine PAMOATE 25 MG CAPSULE (FP) PO SCH ×2 (05:56→07:06)
[2020-12-24] MEDS: METHOCARBAMOL 500 MG TABLET PO PRN (07:05)
[2020-12-24 07:23] VITALS: BP 99/57; PULSE 50; TEMP 97.5
[2020-12-24] MEDS ORDERED: hydrOXYzine PAMOATE 25 MG CAPSULE (FP) PO PRN (08:58)
== END 2020-12-24 08:25 | disposition left against medical advice (07) | DRG 770 ==
LOC: YASAS 14:12 → Y3N 18:30
PROVIDERS: ADMIT Allergy & Immunology; ATTEND Allergy & Immunology
PROC: HZ2ZZZZ Detoxification Services for Substance Abuse Treatment (ICD-10-PCS; principal; 2020-12-23)
DX: F10.230 Alcohol dependence with withdrawal, uncomplicated (principal); F11.20 Opioid dependence, uncomplicated; F14.20 Cocaine dependence, uncomplicated; F12.20 Cannabis dependence, uncomplicated; F17.210 Nicotine dependence, cigarettes, uncomplicated; F19.280 Other psychoactive substance dependence with psychoactive substance-induced anxiety disorder; Z86.19 Personal history of other infectious and parasitic diseases; Z91.013 Allergy to seafood
CPT/HCPCS: C9803; U0003; U0005